=== PATIENT | male | born 1975 | race Caucasian/White ===

== ENCOUNTER 2017-12-09 10:30 | Day surgery (SDC) | payer BC ==
[2017-12-09 11:16] LABS: Absolute Monocytes 0.8 K/uL (0.1-1.3); Absolute Neutrophil 13.8 K/uL (1.8-8.0); Basophils % 0.2 % (0-1.3); Eosinophils % 0.7 % (0-4.4); Hematocrit 41.8 % (39.6-49.0); Lymphocytes % 6.4 % (15.3-44.8); MCH 28.4 pg (27.0-35.0); MCV 84.7 fL (80-100); MPV 7.9 fL (7.6-11.3); Monocytes % 4.8 % (3.3-12.3); RBC Red Blood Cell Count 4.94 M/uL (4.33-5.43)
[2017-12-09 11:22] LABS: Potassium 4.6 mmol/L (3.5-5.1)
[2017-12-09] MEDS ORDERED: NA CHLORIDE 0.9% 1,000 ML ONE (11:23)
[2017-12-09] MEDS ORDERED: CEFAZOLIN/SWI 1gm 1 GM/10 ML SYR ONE (11:24)
--- NOTE | 2017-12-09 11:39 | RAD REPORT ---
EXAM DESCRIPTION: Charmaine Mas (2 Views)12/09/2017 11:20 am CLINICAL HISTORY: Preop COMPARISON: None FINDINGS: The lungs appear clear of acute infiltrate. The heart is normal size IMPRESSION: No acute abnormalities displayed
[2017-12-09] MEDS ORDERED: PROPOFOL 200 MG/20 ML VIAL IV ONE (12:06)
[2017-12-09] MEDS ORDERED: MIDAZOLAM HCL 2 MG/2 ML INJ ONE (12:07)
[2017-12-09] MEDS ORDERED: FENTANYL CITR 100 MCG/2 ML ONE (12:07)
[2017-12-09] MEDS ORDERED: LIDOCAINE 2% MPF 5 ML VIAL ONE (12:07)
[2017-12-09] MEDS ORDERED: ONDANSETRON HCL 40 MG/20 ML VIAL ONE (12:07)
[2017-12-09 12:39] LABS: Blood Morphology Comment NOT SEEN (NOT SEEN); Platelet Estimate ADEQ; Urine White Blood Cell Casts OK
[2017-12-09] MEDS ORDERED: MORPHINE 4 MG/ML SYR ONE (13:25)
[2017-12-09] MEDS: MEPERIDINE HCL 50 MG/ML AMP ONE ×4 (13:27→13:47)
[2017-12-09] MEDS ORDERED: HYDROCODONE/APAP 7.5/325 MG TAB ONE (14:42)
--- NOTE | 2017-12-09 15:35 | EKG ---
Test Date: 2017-12-09 Test Time: 11:08:07 Aircraft Dispatcher: DUNG MEASUREMENT RESULTS: Intervals: Rate: 89 ND: 148 QRSD: 92 QT: 342 QTc: 416 Kelly: P: 13 ND: 148 QRS: 29 T: 36 INTERPRETIVE STATEMENTS: Normal sinus rhythm Normal ECG No previous ECG available for comparison Electronically Signed On 12-09-17 15:34:32 CDT by Miguel Olsen
--- NOTE | 2017-12-10 00:35 | OP ---
Date of Procedure: 12/09/2017 Surgeon: Chinmay Cordero MD Preoperative Diagnosis: Abscess and cellulitis, right lower quadrant. Postoperative Diagnosis: Abscess and cellulitis, right lower quadrant. Procedure: Incision, drainage, and debridement, right lower quadrant abdominal wall abscess. Estimated Blood Loss: Minimal. Specimen: Pus. Finding: As above. Anesthesia: General. Complications: None. Disposition: The patient tolerated the procedure in stable condition and taken to recovery in good g eneral condition. Procedure In Detail: The patient was brought to the OR and placed in supine position. General anest hesia begun. The patient was prepped and draped in usual sterile fashion. Marcaine 0.5% was infiltr ated locally. A 15-blade was used to make approximately a 4-cm incision. Subcutaneous tissue was di vided. Deep to that, pus under pressure, chocolate colored in nature, was evacuated. Cultures were done. Loculation was broken up. Necrotic tissue was debrided with a curette. Wound was irrigated. Bleeding was controlled with cautery. Wet-to-dry normal saline dressing change was applied. The eliu cohen tolerated the procedure in stable condition and taken to recovery in good general condition. Discharge Note: The patient will go to day surgery and home when stable. Disposition: Home. Condition: Stable. Discharge Instructions: Resume home meds and diet. Activity as tolerated. No heavy lifting. Remov e outer dressing in the a.m. Shower. Keep wound clean and dry. Follow up in my office in 2 weeks. Call for appointment. Wet-to-dry normal saline dressing changes daily. Tylenol No. 3 one tablet p. o. q.4 p.r.n. pain. Bactrim DS 1 tab p.o. q.12. Cipro 5 mg p.o. q.12. Hibiclens soap and Bactroban cream to nares and umbilicus b.i.d. MERE/TIM Voice ID: [id number] Report ID: [id number]
== END 2017-12-09 15:05 | disposition home or self-care (01) ==
LOC: OR 10:30
PROVIDERS: ATTEND Surgery
PROC: 0J980ZZ Drainage of Abdomen Subcutaneous Tissue and Fascia, Open Approach (ICD-10-PCS; principal; 2017-12-09 12:00)
DX: L02.211 Cutaneous abscess of abdominal wall (principal); E11.9 Type 2 diabetes mellitus without complications
CPT/HCPCS: 36415; 71046; 80048; 82962; 85025; 87070; 87075; 87205; 93005; J0690; J2175; J2250; J2405; J3010; J7030

== ENCOUNTER 2018-04-27 09:20 | Day surgery (SDC) | payer BC ==
[2018-04-22 15:10] LABS: Absolute Lymphocytes (CBC) 1.8 K/uL (0.7-4.9); Absolute Monocytes 0.5 K/uL (0.1-1.3); Absolute Neutrophil 5.9 K/uL (1.8-8.0); Basophils % 0.4 % (0-1.3); Eosinophils % 1.2 % (0-4.4); Hematocrit 43.8 % (39.6-49.0); Lymphocytes % 21.8 % (15.3-44.8); MPV 8.2 fL (7.6-11.3); Monocytes % 6.2 % (3.3-12.3); RBC Red Blood Cell Count 5.09 M/uL (4.33-5.43)
[2018-04-22 15:20] LABS: BUN Blood Urea Nitrogen 14 mg/dL (7-18); Bicarbonate 32 mmol/L (21-32); Glucose Level 111 mg/dL (74-106); Potassium 4.2 mmol/L (3.5-5.1); Sodium Level 141 mmol/L (136-145)
[2018-04-27] MEDS: BUPIVACAINE 0.5% PF 10 ML VIAL ONE ×2 (09:42→10:15)
[2018-04-27] MEDS ORDERED: CEFAZOLIN 1GM (PREMIX IV) 1 GM/50 ML BAG ONE (09:45)
[2018-04-27] MEDS ORDERED: NA CHLORIDE 0.9% 1,000 ML ONE (09:45)
[2018-04-27] MEDS ORDERED: LIDOCAINE 2% MPF 5 ML VIAL ONE (09:57)
[2018-04-27] MEDS ORDERED: FENTANYL CITR 100 MCG/2 ML ONE ×2 (09:57→10:38)
[2018-04-27] MEDS ORDERED: PROPOFOL 200 MG/20 ML VIAL IV ONE ×2 (09:57→10:18)
[2018-04-27] MEDS ORDERED: MIDAZOLAM HCL 2 MG/2 ML INJ ONE (09:57)
[2018-04-27] MEDS ORDERED: BUPIVACAINE 0.5% PF 10 ML VIAL ONE (10:28)
[2018-04-27] MEDS ORDERED: HYDROCODONE/APAP 7.5/325 MG TAB ONE (11:53)
--- NOTE | 2018-04-27 22:31 | OP ---
Date of Procedure: 04/27/2018 Surgeon: Chinmay Cordero MD [employer] Associate: SHAYNA Galo. Preoperative Diagnosis: Nonhealing wound, right lower quadrant x2. Postoperative Diagnosis: Nonhealing wound, right lower quadrant x2. Procedures: 1.Wide excision, nonhealing wound, right lower quadrant, inferior 8 x 3 cm with layered closure. 2.Wide excision, right lower quadrant wound, 6 x 2 cm, superior with layered closure. Estimated Blood Loss: Minimal. Specimen: Nonhealing wound. Findings: As above. Anesthesia: MAC. Complications: None. Disposition: The patient tolerated the procedure in stable condition and was taken to Recovery in go od general condition. Description Of Procedure: The patient was brought to the OR and placed in supine position. MAC anes thesia was begun. The patient was prepped and draped in the usual sterile fashion. Marcaine 0.5% wa s infiltrated locally in a field block fashion and then a 15-blade was used to excise the inferior wo und 8 x 3 cm that was coming toward the other wound and this was all excised and sent to Pathology, d own through the deep subcutaneous tissue, and then a 6 x 2 cm incision was made superior to that to e xcise the other wound. Again, all the sinus tracts were excised until good healthy tissue was obtain ed. Wound irrigated and bleeding controlled with cautery. A Dino drain 0.5 inch was placed, secu red with 3-0 nylon. Then, the wound was closed with 2-0 chromic to approximate the subcutaneous tiss ue and 4-0 nylon was used to close the skin on the outside. Sterile dressing was applied. The patie nt was awakened and taken to Recovery in good general condition. Discharge Note: The patient will go to Day Surgery and home when stable. Disposition: Home. Condition: Stable. Discharge Instructions: Resume home medications and diet. Activity as tolerated. No heavy lifting. Remove outer dressing in the a.m. Shower. Keep the wound clean and dry. Dry gauze to wound daily and p.r.n. The patient is on antibiotics already, Tylenol No. 3 one tablet p.o. q.4 hours p.r.n. pa in. Follow up in my office in a week. Call for appointment. MERE/TIM Voice ID: [id number] Report ID: [id number]
== END 2018-04-27 12:10 | disposition home or self-care (01) ==
LOC: OR 09:20
PROVIDERS: ATTEND Surgery
PROC: 0JB83ZX Excision of Abdomen Subcutaneous Tissue and Fascia, Percutaneous Approach, Diagnostic (ICD-10-PCS; 2018-04-27)
PROC: 0JB83ZX Excision of Abdomen Subcutaneous Tissue and Fascia, Percutaneous Approach, Diagnostic (ICD-10-PCS; principal; 2018-04-27 11:00)
DX: L72.0 Epidermal cyst (principal); I10 Essential (primary) hypertension; E11.9 Type 2 diabetes mellitus without complications; Z79.899 Other long term (current) drug therapy
CPT/HCPCS: 36415; 80048; 82962; 85025; 88304; J0690; J2250; J2704; J3010; J7030

== ENCOUNTER 2019-05-03 19:26 | Emergency (ER) | payer BC ==
--- OUTSIDE RECORDS SUMMARY | 2019-05-03 19:28 | XMS REPORT ---
:1975 [facility] [address] [place] [address] [place] [id number] Care Team Providers Name Role Phone Unavailable Unavailable Unavailable Problems This patient has no known problems. Allergies, Adverse Reactions, Alerts This patient has no known allergies or adverse reactions. Medications This patient has no known medications.
[2019-05-03] MEDS ORDERED: LIDOCAINE 1% W/EPI 1:100,000 MDV 50 ML VIAL ONE (20:00)
--- NOTE | 2019-05-03 20:56 | ER ---
Nurse's Notes [facility] Name: Marty Torre Age: 44 yrs Sex: Male : 1975 Arrival Date: 05/03/2019 Time: 19:28 Bed 24 Private MD: Diagnosis: Open wound of right buttock Presentation: 05/03 19:35 Presenting complaint: Patient states: Post surgical bleeding started about 45 minutes ca1 to an hour ago. Dr. Cordero sent us here. He coughed and the bleeding hasn't stopped. Surgery was today, on the groin and 2 on the butt cheeks. Bleeding noted. Transition of care: patient was not received from another setting of care. Onset of symptoms was May 03, 2019. Risk Assessment: Do you want to hurt yourself or someone else? Patient reports no desire to harm self or others. Initial Sepsis Screen: Does the patient meet any 2 criteria? No. Patient's initial sepsis screen is negative. Does the patient have a suspected source of infection? No. Patient's initial sepsis screen is negative. Care prior to arrival: None. 19:35 Method Of Arrival: Wheelchair ca1 19:35 Acuity: FAM 2 ca1 Historical: - Allergies: 19:41 No Known Allergies; ca1 - PMHx: 19:41 Diabetes - NIDDM; ca1 - PSHx: 19:41 Shoulder Surg; Abdominal Surge; ca1 - Immunization history:: Adult Immunizations up to date, Flu vaccine is not up to date. - Coronavirus screen:: The patient has NOT traveled to [place], [place], or [place] in the past 14 days. The patient has NOT had contact with known/suspected case of Coronavirus?. - Social history:: Smoking status: Patient denies any tobacco usage or history of. - Ebola Screening: : Patient negative for fever greater than or equal to 101.5 degrees Fahrenheit, and additional compatible Ebola Virus Disease symptoms Patient denies exposure to infectious person Patient denies travel to an Ebola-affected area in the 21 days before illness onset No symptoms or risks identified at this time. Screenin:36 Abuse screen: Denies threats or abuse. Denies injuries from another. Nutritional mg2 screening: No deficits noted. Tuberculosis screening: No symptoms or risk factors identified. Fall Risk IV access (20 points). Assessment: 20:15 General: Appears in no apparent distress. comfortable, Behavior is calm, cooperative. mg2 Pain: Denies pain. 20:15 Neuro: Level of Consciousness is awake, alert, obeys commands, Oriented to person, mg2 place, time, situation. Cardiovascular: Capillary refill < 3 seconds Patient's skin is warm and dry. Respiratory: Airway is patent Respiratory effort is even, unlabored, Respiratory pattern is regular, symmetrical. GI: No signs and/or symptoms were reported involving the gastrointestinal system. : No signs and/or symptoms were reported regarding the genitourinary system. EENT: No signs and/or symptoms were reported regarding the EENT system. Derm: Wound noted buttocks Wound is post op wound bleeding noted at the buttocks. Musculoskeletal: Circulation, motion, and sensation intact. Capillary refill < 3 seconds. Vital Signs: 19:41 BP 124 / 63; Pulse 91; Resp 19 S; Temp 97.6(O); Pulse Ox 99% on R/A; Weight 102.06 kg ca1 (R); Height 5 ft. 11 in. (180.34 cm) (R); Pain 0/10; 19:41 Body Mass Index 31.38 (102.06 kg, 180.34 cm) ca1 ED Course: 19:28 Patient arrived in ED. cl3 19:40 Triage completed. ca1 19:41 Arm band placed on right wrist. ca1 19:45 Neil Fritz MD is Attending Physician. tw4 20:35 Danish Hernandez, JUAN is Primary Nurse. mg2 20:35 Assist provider with laceration repair on buttocks using sutures. Set up tray. mg2 Performed by Neil Fritz MD Dressed with 4X4s, Patient tolerated well. 2 sutures, wet to dry dressing done. IV discontinued, intact, bleeding controlled, No redness/swelling at site. Pressure dressing applied. 20:38 Patient has correct armband on for positive identification. mg2 Administered Medications: No medications were administered Outcome: 20:31 Discharge ordered by . tw4 20:48 Discharged to home ambulatory. mg2 20:48 Condition: good 20:48 Discharge instructions given to patient, Instructed on discharge instructions, follow up and referral plans. Demonstrated understanding of instructions, wound care. 20:48 Patient left the ED. mg2 Signatures: Neil Fritz MD MD 4 Danish Hernandez RN RN mg2 Betsy Reddy RN RN ca1 Misha, Radha cl3
--- NOTE | 2019-05-04 20:50 | EDPHYS ---
Physician Documentation [facility] Name: Marty Torre Age: 44 yrs Sex: Male : 1975 Arrival Date: 05/03/2019 Time: 19:28 Bed 24 Private MD: ED Physician Neil Fritz HPI: 05/04 05:15 This 44 yrs old Male presents to ER via Wheelchair with complaints of Post tw4 Surgical Bleeding. 05:15 Patient presents to ED for recheck of: laceration. The affected area is on the tw4 perineum. Previous treatment: The patient was initially treated today 8 am. Progress: The patient reports excellent improvement in the affected area. There has been resolution, improvement, or non-development of any drainage, fever, pain, redness or swelling. The patient has not experienced similar symptoms in the past. Historical: - Allergies: 05/03 19:41 No Known Allergies; ca1 - PMHx: 19:41 Diabetes - NIDDM; ca1 - PSHx: 19:41 Shoulder Surg; Abdominal Surge; ca1 - Immunization history:: Adult Immunizations up to date, Flu vaccine is not up to date. - Coronavirus screen:: The patient has NOT traveled to [place], [place], or [place] in the past 14 days. The patient has NOT had contact with known/suspected case of Coronavirus?. - Social history:: Smoking status: Patient denies any tobacco usage or history of. - Ebola Screening: : Patient negative for fever greater than or equal to 101.5 degrees Fahrenheit, and additional compatible Ebola Virus Disease symptoms Patient denies exposure to infectious person Patient denies travel to an Ebola-affected area in the 21 days before illness onset No symptoms or risks identified at this time. ROS: 05/04 05:15 Constitutional: Negative for fever, chills, and weight loss, Eyes: Negative for injury, tw4 pain, redness, and discharge, Cardiovascular: Negative for chest pain, palpitations, and edema, Respiratory: Negative for shortness of breath, cough, wheezing, and pleuritic chest pain, Abdomen/GI: Negative for abdominal pain, nausea, vomiting, diarrhea, and constipation, MS/Extremity: Negative for injury and deformity. Skin: Positive for bleeding. Exam: 05:12 Constitutional: This is a well developed, well nourished patient who is awake, alert, tw4 and in no acute distress. Head/Face: Normocephalic, atraumatic. 05:12 Skin: Wound recheck: Unrepaired laceration: arterial bleeding from large wound to left perineal area, Wound healing well wound measuring approx 15 cm x 15cm. Vital Signs: 05/03 19:41 BP 124 / 63; Pulse 91; Resp 19 S; Temp 97.6(O); Pulse Ox 99% on R/A; Weight 102.06 kg ca1 (R); Height 5 ft. 11 in. (180.34 cm) (R); Pain 0/10; 19:41 Body Mass Index 31.38 (102.06 kg, 180.34 cm) ca1 Procedures: 05/04 05:10 Performed ligation of arterial bleed in post surgical wound Wound on left buttock tw4 infiltrated with 3 cc lidocaine with epi using a 3-0 Vicryl suture, arterial bleeding controlled by using two interrupted sutures. MDM: 05/03 19:45 Patient medically screened. tw4 05/04 05:10 Data reviewed: vital signs, nurses notes. Data interpreted: Pulse oximetry: tw4 Interpretation: normal. Counseling: I had a detailed discussion with the patient and/or guardian regarding: the historical points, exam findings, and any diagnostic results supporting the discharge/admit diagnosis. Special discussion: I discussed with the patient/guardian in detail that at this point there is no indication for admission to the hospital. It is understood, however, that if the symptoms persist or worsen the patient needs to return immediately for re-evaluation. Administered Medications: No medications were administered Disposition: 05/03/19 20:31 Discharged to Home. Impression: Open wound of right buttock. - Condition is Stable. - Discharge Instructions: Delayed Wound Closure, Sutured Wound Care, Surgical Wound Debridement. - Medication Reconciliation Form, Thank You Letter, Antibiotic Education, Prescription Opioid Use form. - Follow up: Private Physician; When: Upon discharge from the Emergency Department; Reason: If symptoms return, Recheck today's complaints, Continuance of care, Re-evaluation by your physician. - Problem is new. - Symptoms have improved. Signatures: Neil Fritz MD MD tw4 Danish Hernandez RN RN [facility] Betsy Reddy RN RN ca1 Corrections: (The following items were deleted from the chart) 05/03 20:48 20:31 05/03/2019 20:31 Discharged to Home. Impression: Open wound of right buttock. mg2 Condition is Stable. Forms are Medication Reconciliation Form, Thank You Letter, Antibiotic Education, Prescription Opioid Use. Follow up: Private Physician; When: Upon discharge from the Emergency Department; Reason: If symptoms return, Recheck today's complaints, Continuance of care, Re-evaluation by your physician. Problem is new. Symptoms have improved. tw4
[2019-05-05 20:39] VITALS: BP 124/63; TEMP 97.6; O2SAT 99
== END 2019-05-03 20:48 | disposition home or self-care (01) ==
LOC: ER 19:26
PROC: 0W3M0ZZ Control Bleeding in Male Perineum, Open Approach (ICD-10-PCS; principal; 2019-05-03)
DX: L76.22 Postprocedural hemorrhage of skin and subcutaneous tissue following other procedure (principal); S31.819A Unspecified open wound of right buttock, initial encounter
CPT/HCPCS: 99283